=== PATIENT | female | born 1975 | race Caucasian/White ===

== ENCOUNTER 2018-02-06 17:02 | Emergency (ER) | payer SELFPAY ==
--- NOTE | 2018-02-06 17:40 | UC ---
[facility] HPI - HPI Summary HPI Summary: Pt presents with dental abscess to left lower jaw. She tells me that she has had a bad tooth there for a long time and was scheduled to see the dentist today , but could not make that appointment because she had to stay home with her sick son. Denies fever, chills, cough, SOB, chest pain. - History of Current Complaint Stated Complaint: DENTAL Hx Obtained From: Patient Hx Last Menstrual Period: now Onset/Duration: Gradual Onset Severity: Severe Pain Intensity: 9 Pain Scale Used: 0-10 Numeric - Allergies/Home Medications Allergies/Adverse Reactions: Allergies Allergy/AdvReac Type Severity Reaction Status Date / Time Penicillins Allergy Hives Verified 02/06/18 17:36 Sulfa (Sulfonamide Allergy Hives Verified 02/06/18 17:36 Antibiotics) pregabalin AdvReac Headache Verified 02/06/18 17:36 tramadol AdvReac Palpitation Verified 02/06/18 17:36 s fluticasone Allergy Tingling Uncoded 02/06/18 17:36 Home Medications: Home Medications oxyCODONE TAB* [Roxycodone TAB 5 mg*] 5 mg PO Q8H PRN 02/06/18 [History Confirmed 02/06/18] PMH/Surg Hx/FS Hx/Imm Hx - Additional Past Medical History Additional PMH: Chronic pain - Surgical History Surgical History: Yes Surgery Procedure, Year, and Place: ORAL SX - Family History Known Family History: Positive: Unknown - Social History Lives: With Family Alcohol Use: None Substance Use Type: Prescribed Substance Use Comment - Amount & Last Used: oxycodone this morning Smoking Status (MU): Light Every Day Tobacco Smoker Type: eCigarettes Amount Used/How Often: 1/2 PPD Length of Time of Smoking/Using Tobacco: 26 Years Have You Smoked in the Last Year: Yes Household Exposure Type: Cigarettes Review of Systems Constitutional: Negative Skin: Negative Eyes: Negative ENT: Dental Pain Respiratory: Negative Cardiovascular: Negative Gastrointestinal: Negative Neurovascular: Negative Musculoskeletal: Negative Neurological: Negative Psychological: Negative All Other Systems Reviewed And Are Negative: Yes Physical Exam Triage Information Reviewed: Yes Appearance: Well-Appearing, No Pain Distress, Well-Nourished Vital Signs Reviewed: Yes ENT: Positive: Dental tenderness, Uvula midline. Negative: Tonsillar swelling, Tonsillar exudate, Hoarse voice Dental: Positive: Percussion Tenderness @ - Tooth 29, Gross Decay/Caries @ - Throughout, Abscess @ - Tooth 29, Other: - Missing several teeth left lower. Negative: Cervical Lymphadenopathy, Bleeding Neck: Positive: Supple, Nontender, No Lymphadenopathy Respiratory: Positive: Lungs clear, Normal breath sounds, No respiratory distress, No accessory muscle use Cardiovascular: Positive: RRR, No Murmur, Pulses Normal Neurological: Positive: Alert Psychological: Positive: Age Appropriate Behavior Skin: Negative: rashes, significant lesion(s) Dental Complaint Course/Dx - Course Course Of Treatment: tooth 29 dental abscess - clindamycin. f/u with dentist - Differential Dx/Diagnosis Provider Diagnoses: dental abscess Discharge - Sign-Out/Discharge Documenting (check all that apply): Discharge - Discharge Plan Condition: Stable Disposition: HOME Prescriptions: Clindamycin Cap(NF) [Clindamycin Cap 300 mg Cap(NF)] 300 mg PO TID #21 cap Patient Education Materials: Dental Abscess (ED) Referrals: Jamaal Hancock DO [Primary Care Provider] - Additional Instructions: If you develop a fever, shortness of breath, chest pain, new or worsening symptoms - please call your PCP or go to the ED. - Billing Disposition and Condition Condition: STABLE Disposition: HOME
[2018-02-06 17:42] VITALS: BP 124/78
== END 2018-02-06 17:56 | disposition home or self-care (01) ==
LOC: UCCORT 17:02
DX: K04.7 Periapical abscess without sinus (principal); F17.290 Nicotine dependence, other tobacco product, uncomplicated; G89.29 Other chronic pain
CPT/HCPCS: 99202; G0463

== ENCOUNTER 2018-02-12 12:03 | Emergency (ER) | payer SELFPAY ==
[2018-02-12 13:38] VITALS: BP 132/52
--- NOTE | 2018-02-12 13:54 | ED ---
Respiratory - HPI Summary HPI Summary: 42 yr old female with exposure to pertussis. The patient states she has ridden in car with a child diagnosed with pertussis on a couple of occasions and that the child has spent time in her home as well. The patient has no symptoms of pertussis. No runny nose followed by severe coughing episodes at this point. SHe has been on clinda for dental issue. Her children have been prophylaxed by the the grit removal operator for pertussis. She was told to come here for script for antibiotic for pertussis prophylaxis.. - History of Current Complaint Chief Complaint: UCRespiratory Stated Complaint: COUGH Time Seen by Provider: 02/12/18 13:42 Pain Intensity: 0 - Allergy/Home Medications Allergies/Adverse Reactions: Allergies Allergy/AdvReac Type Severity Reaction Status Date / Time ketorolac [From Toradol] Allergy Unknown rapid Verified 02/12/18 13:24 heart rate Penicillins Allergy Hives Verified 02/06/18 17:36 Sulfa (Sulfonamide Allergy Hives Verified 02/06/18 17:36 Antibiotics) pregabalin AdvReac Headache Verified 02/06/18 17:36 tramadol AdvReac Palpitation Verified 02/06/18 17:36 s fluticasone Allergy Tingling Uncoded 02/06/18 17:36 Home Medications: Home Medications Cholecalciferol TAB* [Vitamin D TAB*] 1,000 unit PO DAILY 02/12/18 [History Confirmed 02/12/18] Omeprazole CAP* [Prilosec CAP* 20 MG] 40 mg PO DAILY 02/12/18 [History Confirmed 02/12/18] Vit B 12 Injections 02/12/18 [History] diphenhydrAMINE HCl [Benadryl Allergy 25 MG CAP] 25 mg PO PRN 02/12/18 [History] PMH/Surg Hx/FS Hx/Imm Hx Respiratory History: Reports: Hx Asthma - Surgical History Surgery Procedure, Year, and Place: ORAL SX Infectious Disease History: No Infectious Disease History: Denies: Traveled Outside the [place] in Last 30 Days - Family History Known Family History: Positive: Unknown - Social History Alcohol Use: None Substance Use Type: Reports: Prescribed Substance Use Comment - Amount & Last Used: oxycodone this morning Smoking Status (MU): Light Every Day Tobacco Smoker Type: eCigarettes Amount Used/How Often: 1/2 PPD Length of Time of Smoking/Using Tobacco: 26 Years Have You Smoked in the Last Year: Yes Review of Systems Constitutional: Negative Positive: Other - dental infection Positive: Cough - mild occasional non productive cough All Other Systems Reviewed And Are Negative: Yes Physical Exam Triage Information Reviewed: Yes Vital Signs On Initial Exam: Initial Vitals Temp Pulse Resp BP Pulse Ox 98.1 F 79 18 132/52 100 02/12/18 13:28 02/12/18 13:28 02/12/18 13:28 02/12/18 13:28 02/12/18 13:28 Vital Signs Reviewed: Yes Appearance: Positive: Well-Appearing, No Pain Distress Skin: Positive: Warm, Skin Color Reflects Adequate Perfusion Head/Face: Positive: Normal Head/Face Inspection Eyes: Positive: EOMI ENT: Positive: Normal ENT inspection, Pharynx normal, TMs normal. Negative: Nasal congestion Neck: Positive: Nontender Respiratory/Lung Sounds: Positive: Clear to Auscultation, Breath Sounds Present Cardiovascular: Positive: RRR. Negative: Murmur Abdomen Description: Positive: Nontender Musculoskeletal: Positive: Strength/ROM Intact Neurological: Positive: Sensory/Motor Intact, Alert, Oriented to Person Place, Time, CN Intact II-III Psychiatric: Positive: Normal - Brett Coma Scale Best Eye Response: 4 - Spontaneous Best Motor Response: 6 - Obeys Commands Best Verbal Response: 5 - Oriented Coma Scale Total: 15 Diagnostics - Vital Signs Vital Signs Temp Pulse Resp BP Pulse Ox 02/12/18 13:28 98.1 F 79 18 132/52 100 - Laboratory Lab Statement: Any lab studies that have been ordered have been reviewed, and results considered in the medical decision making process. Disposition - Course Course Of Treatment: 42 yr old female with exposure to pertussis. Rx with zithromax. She does not have symptoms of pertussis. - Diagnoses Provider Diagnoses: Cough Discharge - Sign-Out/Discharge Documenting (check all that apply): Discharge - Discharge Plan Condition: Good Disposition: HOME Prescriptions: Azithromycin TAB* [Zithromax TAB (Z-DELIA) 250 mg #6 tabs] 2 tab PO .TODAY, THEN 1 DAILY #1 delia Patient Education Materials: Pertussis (ED) Referrals: Sayra Romero MD [Primary Care Provider] - 1 Day - Billing Disposition and Condition Condition: GOOD Disposition: HOME
== END 2018-02-12 13:55 | disposition home or self-care (01) ==
LOC: UCCORT 12:03
DX: R05 Cough (principal); F17.290 Nicotine dependence, other tobacco product, uncomplicated; Z88.5 Allergy status to narcotic agent; Z88.2 Allergy status to sulfonamides; Z88.8 Allergy status to other drugs, medicaments and biological substances
CPT/HCPCS: 99212; G0463